=== PATIENT | female | born 1985 | race Caucasian/White ===

== ENCOUNTER 2016-12-19 08:01 | Inpatient (IN) | payer BC ==
[2016-12-19] MEDS ORDERED: BUPIVACAINE HCL/0.9 % NACL/PF 250 ML EP PRN (10:49)
--- NOTE | 2016-12-19 10:53 | OR ---
Anesthesia Pre Procedure Eval Date of Service: 12/19/16 Pre Procedure Evaluation: Last Vital Signs Temp 36.2 C L 03/20/15 00:27 Pulse Resp BP 116/64 03/20/15 00:27 Pulse Ox Anesthesia Pre Procedure Evaluation Heart Rate:84 Blood Pressure:127/89 Termperature:36.9C Respiratory Rate:18 SaO2:98 DATE: 12/19/2016 TIME: 1050 INDICATIONS: Active labor, labor pain PAST MEDICAL HISTORY: Multipara patient in active labor requesting labor analgesia EXAM: Heart regular; lungs clear ASSESSMENT OF MEDICAL STATUS: Appropriate candidate for labor analgesia PLANNED PROCEDURE: Combination spinal epidural for labor analgesia Home Medications: HOME MEDICATIONS Vit#96/Ferrous Fum/FA [ S] 1 tab PO DAILY 03/16/15 [Last Taken 03/16/15 09:00 1 tab]
[2016-12-19] MEDS ORDERED: fentaNYL CITRATE/PF 50 MCG/ML AMPUL IT SCH (11:00)
--- NOTE | 2016-12-19 11:14 | OR ---
Anesthesia Procedure Note - Anesthesia Procedure Note Date of Service: 12/19/16 Narrative: Vital Signs - Last Taken Temp 36.2 C L 03/20/15 00:27 Pulse Resp BP 116/64 03/20/15 00:27 Pulse Ox 12/19/16 11:12 ANESTHESIA PROCEDURE NOTE Date of Procedure: 12/19/2016 Time of procedure: 1050. Performed by: ALIVIA Barbosa CRNA, MSN Bodywork Therapist: Day Brenner RN. Preprocedure diagnosis: Active labor, labor pain. Post procedure diagnosis: Same. Procedure: Labor Epidural Placement L3 4. Indications: Labor pain. Findings: See below. Details of the procedure: The patient was placed on the side of the bed in sitting position. The patient was prepped with DuraPrep and draped in a sterile fashion. Lidocaine 1% was infiltrated to the skin and subcutaneous tissues at the level of the L3 4 interspace. The epidural space was identified using a 18-gauge Tuohy needle with [id number]-gv-bvrghvbarn technique. Fentanyl 20 g was given intrathecally the intrathecal needle was then removed and the epidural catheter was threaded approximately 4 cm, the epidural needle was then removed, and after careful aspiration 3 mL of 1.5% lidocaine with 1-200,000 epinephrine was injected without change in maternal heart rate or sensorium. The catheter was then taped in place. EBL: Minimal. Fluids: N/A. Specimen: N/A. Post procedure condition: The patient tolerated the procedure well with. Good Relief. No complications were noted. Thank you for this consultation. Bhanu Baird CRNA, FISHERIES TECHNICIAN, MSN
[2016-12-19] MEDS ORDERED: ONDANSETRON HCL/PF 2 MG/ML VIAL IV PRN (11:45)
[2016-12-19] MEDS ORDERED: RINGERS SOLUTION,LACTATED 1,000 ML IV ONE (11:45)
[2016-12-19] MEDS ORDERED: OXYTOCIN/DEXTROSE 5%-WATER 30 UNITS/500 ML BAG IV ONE ×2 (11:45→14:26)
[2016-12-19] MEDS ORDERED: LIDOCAINE HCL 50 ML VIAL PERI PRN (11:45)
[2016-12-19] MEDS ORDERED: DEXTROSE 5%-LACTATED RINGERS 1,000 ML IV PRN (11:45)
[2016-12-19] MEDS ORDERED: CALCIUM CARBONATE 500 MG TAB.CHEW PO ONE (13:09)
[2016-12-19] MEDS ORDERED: SENNOSIDES 8.6 MG TABLET PO PRN (14:26)
[2016-12-19] MEDS ORDERED: BISACODYL 10 MG SUPP.RECT RC PRN (14:26)
[2016-12-19] MEDS ORDERED: oxyCODONE HCL/ACETAMINOPHEN 1 TAB TABLET PO PRN (14:26)
[2016-12-19] MEDS ORDERED: HYDROCORTISONE 30 APPL TUBE TP PRN (14:26)
[2016-12-19] MEDS: IBUPROFEN 800 MG TABLET PO PRN (15:54)
[2016-12-19] MEDS: BENZOCAINE/MENTHOL 81 SPRAY CAN TP PRN ×2 (15:56→19:29)
[2016-12-19] MEDS: GLYCERIN/WITCH HAZEL LEAF 40 APPL BOX TP PRN ×2 (15:56→19:29)
--- NOTE | 2016-12-19 16:14 | OR ---
Operative Report - Dictated Report Narrative: Spontaneous vaginal delivery of viable female in SHEEBA position at 1339 on 12/19/2016 with Apgars 9 and 9, weighing 2967 g. Cord clamping delayed 1 minute. Placenta delivered complete, intact, with three vessel cord Estimated blood loss: 100 mL Lacerations: 3 cm second degree vaginal laceration repaired with 3-0 Vicryl Rapide History for MU Definition: * The number of deliveries resulting in a live the patient experienced prior to current hospitalization * The previous delivery of live twins or any live multiple gestation is considered one live event. *If primagravida or nulliparous is documented select zero for the number of previous live births. Live Events: 3
[2016-12-19] MEDS ORDERED: DOCUSATE SODIUM 100 MG CAPSULE ONE (19:34)
[2016-12-19] MEDS: DOCUSATE SODIUM 100 MG CAPSULE PO SCH (20:57)
[2016-12-19] MEDS: oxyCODONE HCL/ACETAMINOPHEN 1 TAB TABLET PO PRN (20:58)
[2016-12-20] MEDS ORDERED: CALCIUM CARBONATE 500 MG TAB.CHEW PO PRN (01:13)
[2016-12-20] MEDS: IBUPROFEN 800 MG TABLET PO PRN ×4 (01:38→20:20)
[2016-12-20] MEDS: oxyCODONE HCL/ACETAMINOPHEN 1 TAB TABLET PO PRN ×3 (01:38→22:29)
[2016-12-20] MEDS: DOCUSATE SODIUM 100 MG CAPSULE PO SCH ×3 (07:54→20:20)
[2016-12-20] MEDS: PRENATAL VIT#96/FERROUS FUM/FA 1 TAB TABLET PO SCH (08:05)
--- NOTE | 2016-12-20 11:38 | PN ---
Subjective - Date and Time Seen Date: 12/20/16 Time: 11:38 Objective - Vitals Vitals: Last Vital Signs Temp 36.6 C 12/20/16 07:50 Pulse 77 12/20/16 07:50 Resp 18 12/20/16 07:50 BP 109/62 12/20/16 07:50 Pulse Ox 97 12/20/16 07:50 Patient denies complaints. Lochia wnl Abdomen - soft, nontender Uterus - firm, at umbilicus - 1 No calf tenderness Impression: day #1 - s/p spontaneous vaginal delivery. Plan: Continue routine care Cauti Physician Documentation - Urinary Catheter Management Uretheral ([place]) Date of Insertion: 12/19/16 Time of Insertion: 11:45 Date of Removal: 12/19/16 Time of Removal: 13:29
[2016-12-21] MEDS: IBUPROFEN 800 MG TABLET PO PRN (07:18)
[2016-12-21] MEDS: DOCUSATE SODIUM 100 MG CAPSULE PO SCH (08:36)
[2016-12-21] MEDS: PRENATAL VIT#96/FERROUS FUM/FA 1 TAB TABLET PO SCH (08:36)
[2016-12-21 08:43] VITALS: BP 110/76
--- NOTE | 2016-12-21 09:21 | PN ---
Subjective - Date and Time Seen Date: 12/21/16 Time: 09:21 Objective - Vitals Vitals: Last Vital Signs Temp 36.7 C 12/21/16 08:30 Pulse 82 12/21/16 08:30 Resp 18 12/21/16 08:30 BP 110/76 12/21/16 08:30 Pulse Ox 98 12/21/16 08:30 Patient denies complaints. Lochia wnl Abdomen - soft, nontender Uterus - firm, at umbilicus - 2 No calf tenderness Impression: day #2 - s/p spontaneous vaginal delivery. Plan: Routine discharge instructions Cauti Physician Documentation - Urinary Catheter Management Uretheral ([place]) Date of Insertion: 12/19/16 Time of Insertion: 11:45 Date of Removal: 12/19/16 Time of Removal: 13:29
== END 2016-12-21 12:00 | disposition home or self-care (01) | DRG 775 ==
LOC: OBCLINIC 08:01 → OB 10:01 → MS 12-20 01:50
PROVIDERS: ADMIT Obstetrics & Gynecology; ATTEND Obstetrics & Gynecology
PROC: 10E0XZZ Delivery of Products of Conception, External Approach (ICD-10-PCS; principal; 2016-12-19)
PROC: 0KQM0ZZ Repair Perineum Muscle, Open Approach (ICD-10-PCS; 2016-12-19)
PROC: 4A1HXCZ Monitoring of Products of Conception, Cardiac Rate, External Approach (ICD-10-PCS; 2016-12-19)
PROC: 3E0S3CZ (ICD-10-PCS; 2016-12-19)
DX: O70.1 Second degree perineal laceration during delivery (principal); Z37.0 Single live birth; Z3A.38 38 weeks gestation of pregnancy

== ENCOUNTER 2017-01-21 07:02 | Day surgery (SDC) | payer BC ==
[~2017-01-21 07:02] MED LIST: RINGERS SOLUTION,LACTATED 1,000 ML IV PRN
[2017-01-21] MEDS ORDERED: RINGERS SOLUTION,LACTATED 1,000 ML IV ONE ×2 (07:33→10:41)
[2017-01-21] MEDS ORDERED: LIDOCAINE HCL/EPINEPHRINE 30 ML VIAL IJ ONE (08:45)
--- NOTE | 2017-01-21 09:07 | OR ---
Operative Report - Dictated Report Narrative: DATE OF PROCEDURE: 01/21/2017 INDICATION: 31 year old female desires permanent sterilization by removal of both fallopian tubes PREOPERATIVE DIAGNOSIS: Multiparity, desires permanent sterilization POSTOPERATIVE DIAGNOSIS: Multiparity, desires permanent sterilization OPERATION: Laparoscopic bilateral salpingectomy SURGEON: Nicole Hernandez D.O. CREDIT SUPPORT SPECIALIST: None ANESTHESIA: General ESTIMATED BLOOD LOSS: 25 mL FLUID REPLACEMENT: 750 mL URINE OUTPUT: 25 mL FINDINGS: Normal-appearing uterus, small filmy tubal ovarian adhesions with otherwise normal-appearing ovaries and tubes SPECIMEN(S): Fallopian tubes DRAINS: Straight cath 1 intraoperatively TECHNIQUE: The patient was taken to the operating room and placed in dorsal lithotomy position after adequate general anesthesia was obtained. The anterior lip of the cervix was grasped with a long Allis clamp and a uterine manipulator was inserted into the cervical canal and attached to the Allis clamps as a means to manipulate the uterus. Bladder was drained prior to patient entering the OR. Gloves were changed and attention was turned to the abdomen where the umbilicus and suprapubic region were injected with a 1% lidocaine epinephrine was solution. A scalpel was used to score the skin and a 12 mm non-bladed trocar was inserted via direct technique under direct visualization. Pneumoperitoneum was created with CO2 gas. A 5 mm non-bladed trocar was inserted suprapubically in a similar fashion. Through these 2 ports the surgery was carried out with findings as noted above. The right fallopian tube was identified and followed out to the fimbriated end. The fallopian tube was coagulated with the Kleppinger's approximately 2 cm from the cornual region and along the mesosalpinx. The tube was then excised with laparoscopic scissors and removed through the 12 mm port. The exact same was done on the patient's left side. Even though the right mesosalpinx appeared to be adequately coagulated we had a arterial bleed that was very difficult to control required coagulating most of the right mesosalpinx in order to control the bleeding. 1 L of sterile normal saline was used to irrigate the abdomen and pelvis. The fluid was suctioned out. Excellent hemostasis was noted. The CO2 gas was removed from the abdominal cavity. Trochars were removed under direct visualization. The fascia of the 12 mm port was closed with a single 0 Vicryl suture. The skin of both incisions was closed with 4-0 Monocryl. Dermabond was placed over the incisions. Instruments were removed from the cervix and vagina. Sponge, lap, instrument, and needle count were correct x 2. DISPOSITION: The patient was awakened and transferred to post anesthesia care unit in good condition.
[2017-01-21] MEDS ORDERED: MORPHINE SULFATE 2 MG/ML DISP.SYRIN IV PRN (09:44)
[2017-01-21] MEDS ORDERED: oxyCODONE HCL/ACETAMINOPHEN 1 TAB TABLET PO PRN (09:45)
[2017-01-21] MEDS ORDERED: IBUPROFEN 800 MG TABLET PO PRN (09:46)
[2017-01-21 11:08] VITALS: BP 93/54
== END 2017-01-21 07:03 | disposition home or self-care (01) ==
LOC: AMB 07:02
PROVIDERS: ATTEND Obstetrics & Gynecology
PROC: 0UT74ZZ Resection of Bilateral Fallopian Tubes, Percutaneous Endoscopic Approach (ICD-10-PCS; principal; 2017-01-21 08:00)
DX: Z30.2 Encounter for sterilization (principal); D64.9 Anemia, unspecified; F41.9 Anxiety disorder, unspecified; Z87.891 Personal history of nicotine dependence; Z68.30 Body mass index [BMI] 30.0-30.9, adult

== ENCOUNTER 2017-06-25 06:09 | Day surgery (SDC) | payer BC ==
[~2017-06-25 06:09] MED LIST changes: +ACETAMINOPHEN 325 MG TABLET PO PRN; +DEXAMETHASONE SOD PHOSPHATE 10 MG/ML VIAL IV PRN; +MORPHINE SULFATE 10 MG/ML SYRG IV PRN; +MORPHINE SULFATE 2 MG/ML DISP.SYRIN IV PRN; +MORPHINE SULFATE 4 MG/ML SYRG IV PRN; +ONDANSETRON HCL/PF 2 MG/ML VIAL IV PRN; +RINGER'S SOLUTION,LACTATED 1,000 ML IV PRN; -RINGERS SOLUTION,LACTATED 1,000 ML IV PRN; +ceFAZolin SODIUM 1 GM in DEXTROSE 5 % IN WATER 100 ML IV PRN; +oxyCODONE HCL/ACETAMINOPHEN 1 TAB TABLET PO PRN
[2017-06-25] MEDS: OXYMETAZOLINE HCL 150 SPRAY BTL NS PRN ×2 (06:33→07:09)
[2017-06-25] MEDS ORDERED: RINGER'S SOLUTION,LACTATED 1,000 ML IV ONE (06:50)
[2017-06-25] MEDS ORDERED: COCAINE HCL 4 APPL BTL TP ONE (07:20)
[2017-06-25] MEDS ORDERED: LIDOCAINE HCL/EPINEPHRINE 30 ML VIAL IJ ONE ×2 (07:22)
[2017-06-25] MEDS ORDERED: MUPIROCIN 22 APPL TUBE TP ONE (07:40)
[2017-06-25] MEDS ORDERED: PROMETHAZINE HCL 12.5 MG in DEXTROSE 5 % IN WATER 50 ML IV PRN ×2 (07:52)
[2017-06-25] MEDS ORDERED: NALOXONE HCL 0.4 MG/ML VIAL IV PRN (07:52)
[2017-06-25] MEDS ORDERED: ONDANSETRON HCL/PF 2 MG/ML VIAL IV PRN (07:52)
[2017-06-25] MEDS ORDERED: diphenhydrAMINE HCL 50 MG/ML VIAL IV PRN (07:52)
[2017-06-25] MEDS ORDERED: MORPHINE SULFATE 4 MG/ML SYRG IV PRN (07:52)
[2017-06-25 09:54] VITALS: BP 126/80
== END 2017-06-25 06:10 | disposition home or self-care (01) ==
LOC: AMB 06:09
PROVIDERS: ATTEND Allergy & Immunology
PROC: 09BL0ZZ Excision of Nasal Turbinate, Open Approach (ICD-10-PCS; 2017-06-25)
PROC: 09SM0ZZ Reposition Nasal Septum, Open Approach (ICD-10-PCS; principal; 2017-06-25 07:00)
DX: J34.2 Deviated nasal septum (principal); J34.3 Hypertrophy of nasal turbinates; Z68.26 Body mass index [BMI] 26.0-26.9, adult